=== PATIENT | female | born 1965 | race Caucasian/White ===

== ENCOUNTER 2023-10-31 10:40 | Emergency (ER) | payer BC, SELFPAY ==
[2023-10-31 10:44] VITALS: BP 138/82
[2023-10-31 11:29] VITALS: BP 137/77
[2023-10-31 11:30] VITALS: BMI 28.9
[2023-10-31 12:00] VITALS: BP 140/84
[2023-10-31 12:16] LABS: ALT (SGPT) 26 U/L (0-35); AST (SGOT) 35 U/L (14-36); Albumin 4.6 g/dl (3.5-5.0); Alkaline Phosphatase 82 U/L (38-126); Blood Urea Nitrogen 16 mg/dl (7-17); Calcium 9.8 mg/dl (8.4-10.2); Carbon Dioxide 26 mmol/L (22-30); Chloride 103 mmol/L (98-107); Estimated Creatinine Clearance 64 ml/min; Glucose 91 mg/dl (70-99); Potassium 3.9 mmol/L (3.5-5.1); Sodium 134 mmol/L (135-145); Total Bilirubin 0.7 mg/dl (0.2-1.3); Total Protein 7.1 g/dl (6.3-8.2); eGFR > 60.00
[2023-10-31 12:25] LABS: Troponin I < 0.012 ng/ml
[2023-10-31 12:32] LABS: % Basophils 0.5 % (0-2); % Eosinophils 0.9 % (0-6); % Immature Granulocytes 0.2 % (0-0.5); % Lymphocytes 29.4 % (20.5-51.1); % Monocytes 8.2 % (1.7-9.3); % Neutrophils 60.8 % (42.2-75.2); Absolute Eosinophils 0.1 10^3/uL (0-0.7); Absolute Lymphocytes 1.7 10^3/uL (1.2-3.4); Absolute Monocytes 0.5 10^3/uL (0.1-0.6); Absolute Neutrophils 3.5 10^3/uL (1.4-6.5); Hematocrit 38.6 % (37.0-47.0); Hemoglobin 13.8 g/dL (12.0-16.0); Mean Corp Hgb Conc. 35.8 g/dL (33.0-37.0); Mean Corpuscular Hgb 31.4 pg (27.0-31.0); Mean Corpuscular Volume 87.9 fL (81.0-99.0); Nucleated Red Blood Cells % 0 %; Platelet Count 180 10^3/uL (130-400); Red Blood Cell Count 4.39 10^6/uL (4.20-5.40); White Blood Cell Count 5.7 10^3/uL (4.8-10.8)
[2023-10-31 13:00] VITALS: BP 131/71
[2023-10-31 13:20] LABS: INR 1.02; PT 13.4 Sec (11.4-14.6)
[2023-10-31 13:21] LABS: APTT 28.4 Sec (23.4-35.0)
[2023-10-31 14:00] VITALS: BP 128/80
[2023-10-31] MEDS: MAALOX 40 PO (14:57)
[2023-10-31 15:00] VITALS: BP 127/81
--- NOTE | 2023-10-31 15:20 | ED.GENMED ---
History of Present Illness
General
Chief Complaint: Chest Problem
Source: patient
Exam Limitations: none
Time Seen by Provider: 10/31/23 11:32
Travel History
Have you had any contact with someone who has COVID-19?: No
Do you have any symptoms of coronavirus? Fever > 100 degrees, chills, cough, shortness of breath, sore throat, loss of taste or smell, muscle aches, or headache?: No
History of Present Illness
History of Present Illness:
58-year-old female presents with palpitations and sensation of pressure in the center of her chest with excess belching. This started yesterday and persisted today. This is not exertional or pleuritic. She denies any radiation to the neck back or
arms. No recent travel or surgery. No leg swelling or calf pain. She does have history of coronary artery disease. She had a stent placed 6 months ago at [facility]. She had different discomfort in her chest prior to the placement of the
stent.
Phy Exam
Physical Exam
Physical Exam:
General: Well-appearing female no acute respiratory distress
HEENT: Normocephalic atraumatic heart: Regular rate and rhythm no murmurs
Lungs: Clear no wheeze or rales
Abdomen soft nontender nondistended no guarding rebound normal bowel sounds
Extremities: No cyanosis
Course
Orders/Labs/Results
Orders:
Orders
10/31/23 10:47
EKG [Electrocardiogram (*1)] Urgent
Reason for Study: Chest Pain
EKG- Treatment ONCE
10/31/23 11:30
CMP [Comprehensive Metabolic Panel] Urgent
Troponin I Urgent
10/31/23 11:56
CR Chest - 2 Views Urgent
Comment:
Reason For Exam: chest pain
10/31/23 12:09
Complete Blood Count/With Diff Routine
Comment: RECOLLECT PREVIOUS SPECIMEN CLOTTED
10/31/23 12:48
PTT Routine
Prothrombin Time Routine
10/31/23 14:30
Mag Hydrox/Al Hydrox/Simeth [Maalox] 30 ml Phenobarb/Hyoscy/Atropine/Scop [] 10 ml PO NOW
10/31/23 14:56
Mag Hydrox/Al Hydrox/Simeth [Maalox] 30 ml .ROUTE .STK-MED ONE
Phenobarb/Hyoscy/Atropine/Scop [] 10 ml .ROUTE .STK-MED ONE
Abnormal Lab Results
10/31/23 10/31/23
11:30 12:09
MCH 31.4 H pg
(27.0-31.0)
MPV 11.0 H fL
(7.4-10.4)
Sodium 134 L mmol/L
(135-145)
10/31/23 12:09
10/31/23 11:30
Vital Signs
Initial and Last Documented VS:
Initial Vital Signs
Temp Pulse Resp BP Pulse Ox
98.0 F 61 18 138/82 100
10/31/23 10:44 10/31/23 10:44 10/31/23 10:44 10/31/23 10:44 10/31/23 10:44
Last Documented Vital Signs
Temp Pulse Resp BP Pulse Ox
98.0 F 60 17 127/81 97
10/31/23 10:44 10/31/23 15:00 10/31/23 15:00 10/31/23 15:00 10/31/23 14:45
MDM/Problems Addressed
Differential Diagnosis Includes:
Chest pain. Consider ACS for reflux. No PE risk factors and stable vital signs. No signs to suggest DVT. Pain is minimal and patient appears comfortable. Do not suspect dissection. Check labs including troponin. Check chest x-ray.
*Critical Care Note
Total Time (30-74mins, 75-104mins- exclusive of procedures): Not Applicable
Update Note
Update Note:
Workup here essentially negative with undetectable troponin. Pain has been going on for 2 days which is reassuring. No need for repeat troponin at this time. Patient does admit to increased belching question possible reflux as a source. GI
cocktail ordered but will discharge with instructions to have patient follow-up with cardiology
ED Attending Note
-
Portions of this chart may have been created with voice recognition software.� Occasional wrong word or��sound alike� substitutions may have occurred due to the inherent limitations of voice recognition software.
Discharge Plan
Departure
Patient Disposition: Home (Routine Discharge)
Date of Disposition: 10/31/23
Time of Disposition: 15:23
Patient with high blood pressure during this ER visit?: No
Discharge Problem:
Chest pain
Instructions: Chest Pain NON-[facility] Follow Up
Referrals:
Ze Gillette MD [Family Provider] -
Activity Restrictions/Additional Instructions:
Please return here for worsening symptoms otherwise follow-up with your cardiology team
Interventions
Interventions:
*Risk Screen - Suicide Last Done: 10/31/23 10:44
*General Assessment Last Done: 10/31/23 10:44
*Neglect/Abuse Screening Last Done: 10/31/23 10:44
ED- Fall Risk Assessment Last Done: 10/31/23 11:30
*ED COVID-19 Vaccine History Last Done: 10/31/23 10:44
ED- Cardiac Assessment Last Done: 10/31/23 11:30
ED- Pulmonary Assessment Last Done: 10/31/23 11:30
Discharge Date and Time
Print Language: MALTESE
== END 2023-10-31 15:49 | disposition home or self-care (01) ==
LOC: EMR 10:40
PROVIDERS: Physician Assistant; EMERGENCY PHYSICIAN Emergency Medicine; FAMILY PHYSICIAN Family Medicine; OTHER PHYSICIAN Internal Medicine Cardiovascular Disease
DX: R07.89 Other chest pain (principal)
CPT/HCPCS: 99283; 71046; 80053; 84484; 85025; 85610; 85730; 93005